=== PATIENT | female | born 1975 | race Caucasian/White ===

== ENCOUNTER 2017-08-01 21:38 | Emergency (ER) | payer MEDICAID, OTHER ==
[~2017-08-01] VITALS: Ht 172.7 cm; Wt 100.0 kg
[~2017-08-01 21:38] MED LIST: ABIL5TAB6 PO; FLUO20SO3 PO; LITH450T PO; NAPR-576 PO; TRAM50TA PO; TYLE3 PO
[2017-08-01 22:03] VITALS: BP 118/73; PULSE 99; RESP 15; TEMP 98.2; O2SAT 99
[2017-08-01] MEDS ORDERED: PROZ20CA11 PO (22:27)
[2017-08-01] MEDS ORDERED: ABIL15TA3 PO (22:27)
[2017-08-01] MEDS ORDERED: BUSP15TA PO (22:27)
[2017-08-01] MEDS ORDERED: LITH450T PO (22:27)
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
[2017-08-01] MEDS ORDERED: ORPHENADRINE INJ 60 MG/2 ML AMP IM ONE (23:00)
[2017-08-01] MEDS ORDERED: KETOROLAC TROMETHAMINE 60 MG/2 ML (IM) VIAL IM ONE (23:00)
[2017-08-01] MEDS ORDERED: MEDR4PAK PO (23:39)
[2017-08-01] MEDS ORDERED: ROBA500T PO (23:39)
== END 2017-08-01 23:53 | disposition home or self-care (01) ==
LOC: NEPD 21:38
DX: M54.42 Lumbago with sciatica, left side (principal); F41.8 Other specified anxiety disorders; J44.9 Chronic obstructive pulmonary disease, unspecified; F17.210 Nicotine dependence, cigarettes, uncomplicated; F12.90 Cannabis use, unspecified, uncomplicated; Z88.6 Allergy status to analgesic agent; Z85.820 Personal history of malignant melanoma of skin
CPT/HCPCS: 96372; 99283; J1885; J2360